=== PATIENT | female | born 1950 | race Caucasian/White ===

== ENCOUNTER 2017-09-09 00:41 | Emergency (ER) | payer MEDICARE, OTHER ==
[~2017-09-09] VITALS: Ht 154.9 cm; Wt 61.0 kg
[~2017-09-09 00:41] MED LIST: DORZ10DR7 LEFTEYE; LATA2.5D2 EACHEYE; LISI40TA4 PO; METH50TA5 PO
[2017-09-09] MEDS ORDERED: ASPIRIN 81MG TABLET PO SCH (01:15)
[2017-09-09] MEDS ORDERED: NITROGLYCERIN 0.4MG TABLET SL SL PRN (01:15)
[2017-09-09 01:43] LABS: BASOPHILS % 0.4 % (0.0-2.0); EOSINOPHILS % 1.9 % (0.0-5.0); HEMATOCRIT. 38.7 % (36.0-48.0); LYMPHOCYTES % 22.7 % (20.0-50.0); MEAN CORPUSCULAR HEMOGLOBIN 27.4 pg (28.0-32.0); MEAN CORPUSCULAR VOLUME 81.8 fL (81.0-99.0); MONOCYTES % 6.4 % (2.0-8.0); NEUTROPHILS % 68.6 % (40.0-76.0); PLATELET 268 x1000/uL (130-400); RED BLOOD CELL COUNT 4.74 mill/uL (4.2-5.4); RED CELL DISTRIBUTION WIDTH 13.6 % (11.6-14.6)
[2017-09-09 01:52] LABS: PROTHROMBIN TIME 10.3 sec (9.4-11.6)
[2017-09-09 01:56] LABS: CHLORIDE 103 mEq/L (98-107)
[2017-09-09 02:01] LABS: TROPONIN I < 0.02 ng/mL (0.00-0.04)
[2017-09-09 04:31] VITALS: BP 150/64
== END 2017-09-09 06:37 | disposition home or self-care (01) ==
LOC: ER 00:41
DX: I10 Essential (primary) hypertension (principal); Z88.8 Allergy status to other drugs, medicaments and biological substances
CPT/HCPCS: 36415; 71045; 80053; 83880; 84484; 85025; 85610; 93005; 99285

== ENCOUNTER 2018-05-31 10:24 | Day surgery (SDC) | payer MEDICARE, OTHER ==
[~2018-05-31] VITALS: Ht 154.9 cm; Wt 60.8 kg
[~2018-05-31 10:24] MED LIST changes: +ASPI-1159 PO; -DORZ10DR7 LEFTEYE; +DORZ10DR8 LEFTEYE; +METO100T16 PO; +TAP5 PO
[2018-05-31] MEDS ORDERED: LACTATED RINGERS 1,000 ML IV SCH (11:30)
[2018-05-31 12:36] LABS: BASOPHILS % 0.4 % (0.0-2.0); HEMATOCRIT. 36.8 % (36.0-48.0); HEMOGLOBIN. 12.6 g/dL (12.0-16.0); LYMPHOCYTES % 21.9 % (20.0-50.0); MEAN CORPUSCULAR HEMOGLOBIN 28.5 pg (28.0-32.0); MEAN CORPUSCULAR VOLUME 83.2 fL (81.0-99.0); MONOCYTES % 6.8 % (2.0-8.0); NEUTROPHILS % 69.9 % (40.0-76.0); PLATELET 255 x1000/uL (130-400); RED BLOOD CELL COUNT 4.43 mill/uL (4.2-5.4); RED CELL DISTRIBUTION WIDTH 13.5 % (11.6-14.6)
[2018-05-31 12:41] LABS: CHLORIDE 107 mEq/L (98-107)
[2018-05-31] MEDS ORDERED: HYALURONATE SODIUM 14 MG/ML 0.85ML SYRINGE IO ONE (12:47)
[2018-05-31] MEDS ORDERED: TRIAMCINOLONE ACETONIDE 40MG/ML 1ML VIAL ONE (12:47)
[2018-05-31] MEDS ORDERED: PROPOFOL 200MG/20ML VIAL IV ONE ×2 (12:50→13:08)
[2018-05-31] MEDS ORDERED: LIDOCAINE HCL 1% 20ML VIAL (Pyxis) INJ ONE (12:50)
[2018-05-31] MEDS ORDERED: SUCCINYLCHOLINE CHLORIDE 200MG/10ML IV ONE (12:50)
[2018-05-31] MEDS ORDERED: MIDAZOLAM HCL 2 MG/2 ML VIAL ONE ×2 (12:50→13:04)
[2018-05-31] MEDS ORDERED: SODIUM CHLORIDE 0.9% 1,000 ML IV ONE (13:14)
[2018-05-31] MEDS ORDERED: HYDROMORPHONE HCL/PF 2MG/ML CPJ IV PRN (13:15)
[2018-05-31] MEDS ORDERED: IBUPROFEN 600MG TABLET PO ONE (13:15)
[2018-05-31] MEDS ORDERED: ONDANSETRON HCL 4MG/2ML INJ IV PRN (13:15)
[2018-05-31] MEDS ORDERED: TETRACAINE 0.5% OPHTH DROPS 4ML ONE (14:27)
[2018-05-31] MEDS ORDERED: CIPROFLOXACIN 0.3% OPHTH SOLN 2.5ML ONE (14:27)
[2018-05-31] MEDS ORDERED: NEO/POLYMYX B SULF/DEXAMETH OPHTH OINT 3.5GM ONE (14:27)
[2018-05-31] MEDS ORDERED: LIDOCAINE HCL 2%/EPINEPHRINE 1:100,000 20 ML VIAL INFIL ONE (14:27)
[2018-05-31] MEDS ORDERED: LIDOCAINE HCL/PF 2% 20 MG/ML 10ML VIAL ONE (14:27)
[2018-05-31] MEDS ORDERED: BUPIVACAINE HCL/PF 0.75% (7.5MG/ML) 10ML ONE (14:27)
[2018-05-31] MEDS ORDERED: PREDNISOLONE ACETATE 1% OPHTH DROPS 1ML ONE (14:27)
[2018-05-31] MEDS ORDERED: BALANCED SALT IRRIG SOLN 15ML ONE (14:27)
== END 2018-05-31 14:30 | disposition home or self-care (01) ==
LOC: OR 10:24
PROVIDERS: ATTEND Ophthalmology
DX: T85.398A Other mechanical complication of other ocular prosthetic devices, implants and grafts, initial encounter (principal); Y83.9 Surgical procedure, unspecified as the cause of abnormal reaction of the patient, or of later complication, without mention of misadventure at the time of the procedure; I10 Essential (primary) hypertension; E03.9 Hypothyroidism, unspecified; E66.3 Overweight; Z98.890 Other specified postprocedural states; Z79.899 Other long term (current) drug therapy; Z79.82 Long term (current) use of aspirin; Z88.8 Allergy status to other drugs, medicaments and biological substances; Z88.0 Allergy status to penicillin
CPT/HCPCS: 36415; 67120; 80048; 85025; 93005; J0330; J2250; J3490; J2704; J3301